=== PATIENT | female | born 1965 | race Caucasian/White ===

== ENCOUNTER → 2017-10-10 07:42 | Outpatient (CLI) | payer OTHER, MEDICAID, SELFPAY ==
[2017-10-10 08:31] LABS: Cholesterol 248 mg/dL (140-199); HDL Cholesterol 62 mg/dL (40-60); LDL Cholesterol Calculated 160 mg/dL (<100); Triglycerides 131 mg/dL (35-150)
== END ==
PROVIDERS: PCP Internal Medicine; Visit Provider Internal Medicine
DX: E78.00 Pure hypercholesterolemia, unspecified (principal)
CPT/HCPCS: 36415; 80061

== ENCOUNTER 2017-11-30 16:45 | Outpatient (RCR) | payer OTHER, MEDICAID, SELFPAY ==
--- NOTE | 2017-10-13 14:07 | PT.OIE ---
Current Diagnoses Pain in right shoulder (10/12/17) Pain in left shoulder (10/12/17) Muscle weakness (generalized) (10/12/17) Impingement syndrome of right shoulder (10/12/17) Abnormal posture (10/12/17) Past Surgical History Status post appendectomy Status post dilation and curettage Provider Visit Care Team Role Provider Type Charles Ness MD Family Provider Physician Specialty: Family Practice Address: [address] [place] [address], [id number] Email: [email or web address] Lowell Villegas MD Attending Provider Physician Primary Care Provider Specialty: Internal Medicine Address: [address] [place] [address], [id number] Email: Physical Therapy Initial Evaluation PT-OP-A Visit Information Start: 10/12/17 17:49 Freq: Status: Active Protocol: Document 10/12/17 11:15 [facility] (Rec: 10/12/17 17:55 [facility] [email or web address]) Out-Patient Physical Therapy Visit Information Visit Information Visit Type Initial Evaluation Visit Start Time 10:30 Visit Stop Time 11:15 Visit Number 1 Number of CASUAL SHOE INSPECTOR Visits 0 Evaluation Information Evaluation Date 10/12/17 PT-OP-B Current Condition Start: 10/12/17 17:49 Freq: Status: Active Protocol: Document 10/12/17 11:15 RCC (Rec: 10/13/17 14:07 [facility] [email or web address]) Current Condition History of Current Condition Onset Date 2 months ago Current Complaints Bilateral shoulder pain History of Current Condition Pt is a 52 y/o female presenting to physical therapy with a c/o bilateral shoulder pain, onset ~2 months ago of unknown origin. Pt notes that 2-3 yrs ago she had similar pain in the L shoulder only while she was backpacking on vacation. She had formal physical therapy which helped then. Aggravating factors: lifting, carrying heavy backpack. Easing factors: rest . Pt is hoping to be able to carry a large backpack (up to 30 lbs) to again backpack this summer, possibly overseas. She is R hand dominant. She admits to bilateral UE tingling occasionally. She also has a h/o headaches with aura. No imaging has been performed. Treatment Goals Patient/Caregiver Goals Be able to carry a 30 lb. backpack without pain. Prior Functional Status Baseline Function- ADL's Independent Baseline Function- Mobility Independent Baseline Function- Recreation/Hobbies Carry 30 lb backpack without pain. Current Functional Impairments (Reported) Functional Limitations- Recreation/ Unable to carry a 30 lb. Hobbies backpack without increased pain. PT-OP-C Subjective Start: 10/12/17 17:49 Freq: Status: Active Protocol: Document 10/12/17 11:15 RCC (Rec: 10/13/17 14:07 [facility] [email or web address]) OP-PT Subjective Patient Comments Patient Comments Pt reports that pain has been getting a little better over the past week. Patient Questionnaires Quick Dash- Upper Extremity Quick Dash UE Score 13.63 Quick Dash UE Impairment 1 to 19% Impaired (Score 1-19) OP-PT Pain Assessment Location Bilateral Shoulder Intensity 2 Scale Used Numeric (1 - 10) Description Aching Dull Frequency Frequent Pain Aggravating Factors Lifting Pain Alleviating Factors Rest PT-OP-F Manual Assessment Start: 10/12/17 17:49 Freq: Status: Active Protocol: Document 10/12/17 11:15 RCC (Rec: 10/13/17 14:07 [facility] [email or web address]) Manual Assessments Soft Tissue Assessment Soft Tissue Mobility Assessment TTP: R rotator cuff attachment , bilateral rhomboids, upper trapezius, levator scapula, infraspinatus. PT-OP-H Neuro Start: 10/12/17 17:49 Freq: Status: Active Protocol: Document 10/12/17 11:15 RCC (Rec: 10/13/17 14:07 [facility] [email or web address]) Deep Tendon Reflex & Clonus Assessment Deep Tendon Reflex Bilateral Brachioradialis Deep Tendon Reflex 2+ Normal Bilateral Tricep Deep Tendon Reflex 2+ Normal Bilateral Bicep Deep Tendon Reflex 2+ Normal PT-OP-J Posture/Palpation/Skin Start: 10/12/17 17:49 Freq: Status: Active Protocol: Document 10/12/17 11:15 RCC (Rec: 10/13/17 14:07 [facility] [email or web address]) Posture Evaluation Comments Posture Comments Moderate rounded shoulders, mild kyphosis of thoracic spine. PT-OP-K Range of Motion Start: 10/12/17 17:49 Freq: Status: Active Protocol: Document 10/12/17 11:15 RCC (Rec: 10/13/17 14:07 [facility] [email or web address]) Cervical Spine Range of Motion Cervical Spine Active Degrees Testing Position Sitting Flexion 60 Extension 70 Rotation Left 80 Rotation Right 80 Lateral Flexion Left 50 Lateral Flexion Right 45 Comments no pain Shoulder Goniometric Range of Motion Shoulder Measured in Degrees Right Passive Shoulder ROM WFL Yes Testing Position Supine Flexion 170 Abduction 170 Left Active Shoulder ROM WFL Yes Right Active Shoulder ROM WFL No Testing Position Sitting Flexion 160 Abduction 160 External Rotation at 90 degrees 90 Abduction Internal Rotation 80 PT-OP-L Special Tests Start: 10/12/17 17:49 Freq: Status: Active Protocol: Document 10/12/17 11:15 RCC (Rec: 10/13/17 14:07 [facility] [email or web address]) Special Tests Cervical Spine Special Tests Spurling's Test Test Results negative Shoulder Special Tests Elevation Impingement Test Results Positive R, negative L Collins Antony Impingement Test Results Positive R, negative L Empty Can Test Results Positive R, negative L Load and Shift Test Results negative bilaterally Lift-Off Rotator Cuff Test Results negative bilaterally Anterior Draw Test Results negative bilaterally PT-OP-M Strength Start: 10/12/17 17:49 Freq: Status: Active Protocol: Document 10/12/17 11:15 RCC (Rec: 10/13/17 14:07 [facility] [email or web address]) Shoulder Strength Shoulder Manual Muscle Testing Right Flexion 5 Normal Abduction (C5) 5 Normal External Rotation 4+ Good+ Internal Rotation 5 Normal Left Flexion 5 Normal Abduction (C5) 5 Normal External Rotation 5 Normal Internal Rotation 4+ Good+ PT-OP-Q Treatments Start: 10/12/17 17:49 Freq: Status: Active Protocol: Document 10/12/17 11:15 RCC (Rec: 10/13/17 14:07 [facility] [email or web address]) Therapeutic Exercises Sitting Exercises 1 Sitting Exercise Name upper trapezius stretch Side bilateral Reps/Minutes 2 each Comments 30 sec hold Standing Exercises 2 Standing Exercise Name Bilateral ER Side bilateral Resistance L1 band Reps/Minutes 1 x 10 Comments demonstration and tactile cuing 1 Standing Exercise Name Scapular retraction Side bilateral Resistance L1 band Reps/Minutes 1 x 10 Comments demonstration and tactile cuing PT-OP-T Assessment and Plan Start: 10/12/17 17:49 Freq: Status: Active Protocol: Document 10/12/17 11:15 RCC (Rec: 10/13/17 14:07 [facility] [email or web address]) Physical Therapy Assessment Rehab Potential Rehabilitation Potential Good Evaluation Complexity Number of Personal Factors/Comorbidities 1-2 Number of Body Systems Impaired 1-2 Clinical Presentation at Evaluation Stable Impairments Impairments Activity Tolerance Posture ROM Soft Tissue Mobility Strength Goals Five Impairment Inability to carry a 30 lb. backpack without increased pain. Short Term Goal (STG) Pt will carry a 15 lb backpack without increased pain. STG Duration 5 weeks Group Home Goal (LTG) Pt will carry a 30 lb backpack without increased pain. LTG Duration 10 weeks. Four Impairment Bilateral shoulder pain 2/10 Group Home Goal (LTG) 0/10 bilateral shoulder pain. LTG Duration 10 weeks Three Impairment Quick DASH score Short Term Goal (STG) Disability score of 7 or less STG Duration 5 weeks Independent Living Advisor Goal (LTG) Disability score of 0 LTG Duration 10 weeks Two Impairment Decreased ROM of the R shoulder Independent Living Advisor Goal (LTG) 170 degrees of AROM of flexion and abduction of the R shoulder without pain. One Impairment UE weakness Group Home Goal (LTG) 5/5 shoulder flexion, abduction, IR and ER. LTG Duration 10 weeks Assessment Summary Assessment Pt presents with signs and symptoms consistent with R shoulder impingement syndrome. L shoulder is elevated, pain likely from tension noted in the upper trapezius muscle. Pain in bilateral shoulders does not appear to be coming from the cervical spine, although pt's HAs may be related to the cervical spine in origin. Pt would greatly benefit from skilled physical therapy intervention to improve her ROM, strength, decrease pain, and be able to tolerate carrying a 30 lb backpack for her plans to travel/backpack later on this year. Physical Therapy Plan Frequency and Duration Frequency of Treatment 2x/Week Duration of Treatment 10 Plan of Care Start Date 10/12/17 Plan of Care End Date 12/21/17 Therapeutic Interventions Therapeutic Interventions Aquatic Therapy Home Exercise Program Joint Mobilizations Manual Therapy Neuromuscular Re-education Patient/Caregiver Education Self-Care/Home Management Soft Tissue Mobilization Taping Therapeutic Activities Therapeutic Exercises Modalities Cold Pack/Ice Massage Electric Stimulation Hot Packs Iontophoresis Ultrasound Other Therapeutic Interventions Iontophoresis- dexamethasone 4 mg/mL. Next Visit Focus/Plan Next Note Type Treatment Note Next Visit Plan bilateral shoulder row and extension bent over mat table, STR to upper trapezius. Please Sign and Return: I have reviewed this Plan of Care and certify that the skilled therapy services above are required to meet the patient?s needs. Physician Signature Date Printed Name and Credentials Clinical Instructor Signature Printed Name and Credentials
--- NOTE | 2017-10-19 13:47 | PT.OTN ---
Current Diagnoses Pain in right shoulder (10/19/17) Pain in left shoulder (10/19/17) Physical Therapy Treatment Note PT-OP-A Visit Information Start: 10/12/17 17:49 Freq: Status: Active Protocol: Document 10/19/17 12:45 RCC (Rec: 10/19/17 13:47 [facility] [email or web address]) Out-Patient Physical Therapy Visit Information Visit Information Visit Type Treatment Note Visit Start Time 12:05 Visit Stop Time 12:45 Total Visit Minutes 40 Visit Number 2 Number of SCHOOL CUSTODIAN Visits 0 Evaluation Information Evaluation Date 10/12/17 PT-OP-B Current Condition Start: 10/12/17 17:49 Freq: Status: Active Protocol: Document 10/12/17 11:15 RCC (Rec: 10/13/17 14:07 [facility] [email or web address]) Current Condition History of Current Condition Onset Date 2 months ago Current Complaints Bilateral shoulder pain History of Current Condition Pt is a 52 y/o female presenting to physical therapy with a c/o bilateral shoulder pain, onset ~2 months ago of unknown origin. Pt notes that 2-3 yrs ago she had similar pain in the L shoulder only while she was backpacking on vacation. She had formal physical therapy which helped then. Aggravating factors: lifting, carrying heavy backpack. Easing factors: rest . Pt is hoping to be able to carry a large backpack (up to 30 lbs) to again backpack this summer, possibly overseas. She is R hand dominant. She admits to bilateral UE tingling occasionally. She also has a h/o headaches with aura. No imaging has been performed. Treatment Goals Patient/Caregiver Goals Be able to carry a 30 lb. backpack without pain. Prior Functional Status Baseline Function- ADL's Independent Baseline Function- Mobility Independent Baseline Function- Recreation/Hobbies Carry 30 lb backpack without pain. Current Functional Impairments (Reported) Functional Limitations- Recreation/ Unable to carry a 30 lb. Hobbies backpack without increased pain. PT-OP-C Subjective Start: 10/12/17 17:49 Freq: Status: Active Protocol: Document 10/19/17 12:45 RCC (Rec: 10/19/17 13:47 [facility] [email or web address]) OP-PT Subjective Patient Comments Patient Comments Pt is doing her HEP, reports pain is a little less. Patient Reported Progress Improving PT-OP-F Manual Assessment Start: 10/12/17 17:49 Freq: Status: Active Protocol: Document 10/12/17 11:15 RCC (Rec: 10/13/17 14:07 [facility] [email or web address]) Manual Assessments Soft Tissue Assessment Soft Tissue Mobility Assessment TTP: R rotator cuff attachment , bilateral rhomboids, upper trapezius, levator scapula, infraspinatus. PT-OP-H Neuro Start: 10/12/17 17:49 Freq: Status: Active Protocol: Document 10/12/17 11:15 RCC (Rec: 10/13/17 14:07 [facility] [email or web address]) Deep Tendon Reflex & Clonus Assessment Deep Tendon Reflex Bilateral Brachioradialis Deep Tendon Reflex 2+ Normal Bilateral Tricep Deep Tendon Reflex 2+ Normal Bilateral Bicep Deep Tendon Reflex 2+ Normal PT-OP-J Posture/Palpation/Skin Start: 10/12/17 17:49 Freq: Status: Active Protocol: Document 10/19/17 12:45 RCC (Rec: 10/19/17 13:47 [facility] [email or web address]) Palpation Assessment Location One Palpation Location bilateral [place] Palpation Findings Tenderness Trigger Point Palpation Details L>R PT-OP-K Range of Motion Start: 10/12/17 17:49 Freq: Status: Active Protocol: Document 10/12/17 11:15 RCC (Rec: 10/13/17 14:07 [facility] [email or web address]) Cervical Spine Range of Motion Cervical Spine Active Degrees Testing Position Sitting Flexion 60 Extension 70 Rotation Left 80 Rotation Right 80 Lateral Flexion Left 50 Lateral Flexion Right 45 Comments no pain Shoulder Goniometric Range of Motion Shoulder Measured in Degrees Right Passive Shoulder ROM WFL Yes Testing Position Supine Flexion 170 Abduction 170 Left Active Shoulder ROM WFL Yes Right Active Shoulder ROM WFL No Testing Position Sitting Flexion 160 Abduction 160 External Rotation at 90 degrees 90 Abduction Internal Rotation 80 PT-OP-L Special Tests Start: 10/12/17 17:49 Freq: Status: Active Protocol: Document 10/12/17 11:15 RCC (Rec: 10/13/17 14:07 [facility] [email or web address]) Special Tests Cervical Spine Special Tests Spurling's Test Test Results negative Shoulder Special Tests Elevation Impingement Test Results Positive R, negative L Collins Antony Impingement Test Results Positive R, negative L Empty Can Test Results Positive R, negative L Load and Shift Test Results negative bilaterally Lift-Off Rotator Cuff Test Results negative bilaterally Anterior Draw Test Results negative bilaterally PT-OP-M Strength Start: 10/12/17 17:49 Freq: Status: Active Protocol: Document 10/12/17 11:15 RCC (Rec: 10/13/17 14:07 [facility] [email or web address]) Shoulder Strength Shoulder Manual Muscle Testing Right Flexion 5 Normal Abduction (C5) 5 Normal External Rotation 4+ Good+ Internal Rotation 5 Normal Left Flexion 5 Normal Abduction (C5) 5 Normal External Rotation 5 Normal Internal Rotation 4+ Good+ PT-OP-Q Treatments Start: 10/12/17 17:49 Freq: Status: Active Protocol: Document 10/19/17 12:45 RCC (Rec: 10/19/17 13:47 [facility] [email or web address]) Therapeutic Exercises Supine Exercises 1 Supine Exercise Name supine punch Side bilateral Resistance 3 lbs. Reps/Minutes 1x15 Prone Exercises 1 Prone Exercise Name Prone- I, T, Y Side bilateral Equipment Used 65 cm ball Reps/Minutes 1x12 Standing Exercises 5 Standing Exercise Name shoulder abduction and flexion Side bilateral Resistance 2 lbs Reps/Minutes 1x15 4 Standing Exercise Name shoulder abduction and flexion Side bilateral Resistance L2 Reps/Minutes 1x15 3 Standing Exercise Name Shoulder extension Side bilateral Resistance L2 Reps/Minutes 1x15 Manual Therapy Treatment Soft Tissue Mobilization 1 Body Location bilateral upper trapezius Mobilization Type Sustained Pressure Intensity/Depth Moderate Comments 12 min. PT-OP-R Modalities Start: 10/19/17 13:38 Freq: Status: Active Protocol: Document 10/19/17 12:45 RCC (Rec: 10/19/17 13:47 [facility] [email or web address]) Ultrasound Therapy Treatment Bilateral Upper Trapezius Treatment Duration (minutes) 8 Patient Position Sitting Applicator Size (cm2) 5 Frequency Setting (mHz) 1 Intensity Setting (w/cm2) 1.2 PT-OP-T Assessment and Plan Start: 10/12/17 17:49 Freq: Status: Active Protocol: Document 10/19/17 12:45 RCC (Rec: 10/19/17 13:47 [facility] [email or web address]) Physical Therapy Assessment Assessment Summary Assessment Pt tolerated UE strengthening without c/o pain, but requires tactile cuing for upper trapezius inhibition. More tension noted in L upper trapezius compared to the R. Physical Therapy Plan Frequency and Duration Frequency of Treatment 2x/Week Duration of Treatment 10 Plan of Care Start Date 10/12/17 Plan of Care End Date 12/21/17 Next Visit Focus/Plan Next Note Type Treatment Note Next Visit Plan UBE, advance BUE strengthening . Please Sign and Return: I have reviewed this Plan of Care and certify that the skilled therapy services above are required to meet the patient?s needs. Physician Signature Date Printed Name and Credentials Clinical Instructor Signature Printed Name and Credentials
--- NOTE | 2017-11-03 11:00 | PT.OTN ---
Current Diagnoses Pain in right shoulder (11/03/17) Pain in left shoulder (11/03/17) Physical Therapy Treatment Note PT-OP-A Visit Information Start: 10/12/17 17:49 Freq: Status: Active Protocol: Document 11/03/17 10:30 RCC (Rec: 11/03/17 11:00 [facility] [email or web address]) Out-Patient Physical Therapy Visit Information Visit Information Visit Type Treatment Note Visit Start Time 09:45 Visit Stop Time 10:30 Total Visit Minutes 45 Visit Number 3 Number of ASSEMBLER FAUCETS Visits 0 Evaluation Information Evaluation Date 10/12/17 PT-OP-B Current Condition Start: 10/12/17 17:49 Freq: Status: Active Protocol: Document 10/12/17 11:15 RCC (Rec: 10/13/17 14:07 [facility] [email or web address]) Current Condition History of Current Condition Onset Date 2 months ago Current Complaints Bilateral shoulder pain History of Current Condition Pt is a 52 y/o female presenting to physical therapy with a c/o bilateral shoulder pain, onset ~2 months ago of unknown origin. Pt notes that 2-3 yrs ago she had similar pain in the L shoulder only while she was backpacking on vacation. She had formal physical therapy which helped then. Aggravating factors: lifting, carrying heavy backpack. Easing factors: rest . Pt is hoping to be able to carry a large backpack (up to 30 lbs) to again backpack this summer, possibly overseas. She is R hand dominant. She admits to bilateral UE tingling occasionally. She also has a h/o headaches with aura. No imaging has been performed. Treatment Goals Patient/Caregiver Goals Be able to carry a 30 lb. backpack without pain. Prior Functional Status Baseline Function- ADL's Independent Baseline Function- Mobility Independent Baseline Function- Recreation/Hobbies Carry 30 lb backpack without pain. Current Functional Impairments (Reported) Functional Limitations- Recreation/ Unable to carry a 30 lb. Hobbies backpack without increased pain. PT-OP-C Subjective Start: 10/12/17 17:49 Freq: Status: Active Protocol: Document 11/03/17 10:30 [facility] (Rec: 11/03/17 11:00 [facility] [email or web address]) OP-PT Subjective Patient Comments Patient Comments Pt states that she has had what she feels like is nerve pain into the bilateral shoulders and forearms, R>L. She did lift a water cooler a few days after the previous session. PT-OP-F Manual Assessment Start: 10/12/17 17:49 Freq: Status: Active Protocol: Document 11/03/17 10:30 RCC (Rec: 11/03/17 11:00 [facility] [email or web address]) Manual Assessments Soft Tissue Assessment Soft Tissue Mobility Assessment TTP: bilateral median nerve PT-OP-H Neuro Start: 10/12/17 17:49 Freq: Status: Active Protocol: Document 10/12/17 11:15 RCC (Rec: 10/13/17 14:07 [facility] [email or web address]) Deep Tendon Reflex & Clonus Assessment Deep Tendon Reflex Bilateral Brachioradialis Deep Tendon Reflex 2+ Normal Bilateral Tricep Deep Tendon Reflex 2+ Normal Bilateral Bicep Deep Tendon Reflex 2+ Normal PT-OP-J Posture/Palpation/Skin Start: 10/12/17 17:49 Freq: Status: Active Protocol: Document 10/19/17 12:45 RCC (Rec: 10/19/17 13:47 [facility] [email or web address]) Palpation Assessment Location One Palpation Location bilateral [place] Palpation Findings Tenderness Trigger Point Palpation Details L>R PT-OP-K Range of Motion Start: 10/12/17 17:49 Freq: Status: Active Protocol: Document 10/12/17 11:15 RCC (Rec: 10/13/17 14:07 [facility] [email or web address]) Cervical Spine Range of Motion Cervical Spine Active Degrees Testing Position Sitting Flexion 60 Extension 70 Rotation Left 80 Rotation Right 80 Lateral Flexion Left 50 Lateral Flexion Right 45 Comments no pain Shoulder Goniometric Range of Motion Shoulder Measured in Degrees Right Passive Shoulder ROM WFL Yes Testing Position Supine Flexion 170 Abduction 170 Left Active Shoulder ROM WFL Yes Right Active Shoulder ROM WFL No Testing Position Sitting Flexion 160 Abduction 160 External Rotation at 90 degrees 90 Abduction Internal Rotation 80 PT-OP-L Special Tests Start: 10/12/17 17:49 Freq: Status: Active Protocol: Document 10/12/17 11:15 RCC (Rec: 10/13/17 14:07 [facility] [email or web address]) Special Tests Cervical Spine Special Tests Spurling's Test Test Results negative Shoulder Special Tests Elevation Impingement Test Results Positive R, negative L Collins Antony Impingement Test Results Positive R, negative L Empty Can Test Results Positive R, negative L Load and Shift Test Results negative bilaterally Lift-Off Rotator Cuff Test Results negative bilaterally Anterior Draw Test Results negative bilaterally PT-OP-M Strength Start: 10/12/17 17:49 Freq: Status: Active Protocol: Document 10/12/17 11:15 RCC (Rec: 10/13/17 14:07 [facility] [email or web address]) Shoulder Strength Shoulder Manual Muscle Testing Right Flexion 5 Normal Abduction (C5) 5 Normal External Rotation 4+ Good+ Internal Rotation 5 Normal Left Flexion 5 Normal Abduction (C5) 5 Normal External Rotation 5 Normal Internal Rotation 4+ Good+ PT-OP-Q Treatments Start: 10/12/17 17:49 Freq: Status: Active Protocol: Document 11/03/17 10:30 RCC (Rec: 11/03/17 11:00 [facility] [email or web address]) Manual Therapy Treatment Soft Tissue Mobilization 4 Body Location R supra and infraspinatus Mobilization Type Sustained Pressure Intensity/Depth Moderate 3 Body Location bilateral suboccipitals Mobilization Type Myofascial Release Intensity/Depth Moderate Body Position Supine 2 Body Location bilateral levator Mobilization Type Sustained Pressure Intensity/Depth Moderate 1 Body Location bilateral upper trapezius Mobilization Type Sustained Pressure Intensity/Depth Moderate Joint Mobilizations 1 Joint GH traction Direction inferior Grade II Body Position Supine Nerve Glides 1 Nerve Median Details bilateral Body Position Supine Reps/Duration 2 x 10 each Comments head neutral Self-Care/Home Management Treatment Education Patient Education Home Exercise Program Posture PT-OP-T Assessment and Plan Start: 10/12/17 17:49 Freq: Status: Active Protocol: Document 11/03/17 10:30 [facility] (Rec: 11/03/17 11:00 [facility] [email or web address]) Physical Therapy Assessment Assessment Summary Assessment Pt with tension bilaterally in the median nerve, R>L. Pt possibly with increased cervical muscle tension, increasing tension of the median nerves. Physical Therapy Plan Frequency and Duration Frequency of Treatment 2x/Week Duration of Treatment 10 Plan of Care Start Date 10/12/17 Plan of Care End Date 12/21/17 Next Visit Focus/Plan Next Note Type Treatment Note Next Visit Plan assess tolerance to previous session, posture, strengthening.
--- NOTE | 2017-11-10 10:20 | PT.OTN ---
Current Diagnoses Pain in right shoulder (11/10/17) Pain in left shoulder (11/10/17) Physical Therapy Treatment Note PT-OP-A Visit Information Start: 10/12/17 17:49 Freq: Status: Active Protocol: Document 11/10/17 10:20 RCC (Rec: 11/10/17 10:30 RCC [email or web address]) Out-Patient Physical Therapy Visit Information Visit Information Visit Type Treatment Note Visit Start Time 09:45 Visit Stop Time 10:20 Total Visit Minutes 35 Visit Number 4 Number of PLATFORM INSPECTOR Visits 0 Evaluation Information Evaluation Date 10/12/17 PT-OP-B Current Condition Start: 10/12/17 17:49 Freq: Status: Active Protocol: Document 10/12/17 11:15 RCC (Rec: 10/13/17 14:07 RCC [email or web address]) Current Condition History of Current Condition Onset Date 2 months ago Current Complaints Bilateral shoulder pain History of Current Condition Pt is a 52 y/o female presenting to physical therapy with a c/o bilateral shoulder pain, onset ~2 months ago of unknown origin. Pt notes that 2-3 yrs ago she had similar pain in the L shoulder only while she was backpacking on vacation. She had formal physical therapy which helped then. Aggravating factors: lifting, carrying heavy backpack. Easing factors: rest . Pt is hoping to be able to carry a large backpack (up to 30 lbs) to again backpack this summer, possibly overseas. She is R hand dominant. She admits to bilateral UE tingling occasionally. She also has a h/o headaches with aura. No imaging has been performed. Treatment Goals Patient/Caregiver Goals Be able to carry a 30 lb. backpack without pain. Prior Functional Status Baseline Function- ADL's Independent Baseline Function- Mobility Independent Baseline Function- Recreation/Hobbies Carry 30 lb backpack without pain. Current Functional Impairments (Reported) Functional Limitations- Recreation/ Unable to carry a 30 lb. Hobbies backpack without increased pain. PT-OP-C Subjective Start: 10/12/17 17:49 Freq: Status: Active Protocol: Document 11/10/17 10:20 RCC (Rec: 11/10/17 10:30 RCC [email or web address]) OP-PT Subjective Patient Comments Patient Comments Pt notes that the nerve pain she was experiencing went away after her previous session. She still feels weak in the UEs. PT-OP-F Manual Assessment Start: 10/12/17 17:49 Freq: Status: Active Protocol: Document 11/10/17 10:20 RCC (Rec: 11/10/17 10:30 RCC [email or web address]) Manual Assessments Soft Tissue Assessment Soft Tissue Mobility Assessment TTP: R infraspinatus, B levator and UT PT-OP-H Neuro Start: 10/12/17 17:49 Freq: Status: Active Protocol: Document 10/12/17 11:15 RCC (Rec: 10/13/17 14:07 RCC [email or web address]) Deep Tendon Reflex & Clonus Assessment Deep Tendon Reflex Bilateral Brachioradialis Deep Tendon Reflex 2+ Normal Bilateral Tricep Deep Tendon Reflex 2+ Normal Bilateral Bicep Deep Tendon Reflex 2+ Normal PT-OP-J Posture/Palpation/Skin Start: 10/12/17 17:49 Freq: Status: Active Protocol: Document 10/19/17 12:45 RCC (Rec: 10/19/17 13:47 RCC [email or web address]) Palpation Assessment Location One Palpation Location bilateral UT Palpation Findings Tenderness Trigger Point Palpation Details L>R PT-OP-K Range of Motion Start: 10/12/17 17:49 Freq: Status: Active Protocol: Document 10/12/17 11:15 RCC (Rec: 10/13/17 14:07 RCC [email or web address]) Cervical Spine Range of Motion Cervical Spine Active Degrees Testing Position Sitting Flexion 60 Extension 70 Rotation Left 80 Rotation Right 80 Lateral Flexion Left 50 Lateral Flexion Right 45 Comments no pain Shoulder Goniometric Range of Motion Shoulder Measured in Degrees Right Passive Shoulder ROM WFL Yes Testing Position Supine Flexion 170 Abduction 170 Left Active Shoulder ROM WFL Yes Right Active Shoulder ROM WFL No Testing Position Sitting Flexion 160 Abduction 160 External Rotation at 90 degrees 90 Abduction Internal Rotation 80 PT-OP-L Special Tests Start: 10/12/17 17:49 Freq: Status: Active Protocol: Document 10/12/17 11:15 RCC (Rec: 10/13/17 14:07 RCC [email or web address]) Special Tests Cervical Spine Special Tests Spurling's Test Test Results negative Shoulder Special Tests Elevation Impingement Test Results Positive R, negative L Collins Antony Impingement Test Results Positive R, negative L Empty Can Test Results Positive R, negative L Load and Shift Test Results negative bilaterally Lift-Off Rotator Cuff Test Results negative bilaterally Anterior Draw Test Results negative bilaterally PT-OP-M Strength Start: 10/12/17 17:49 Freq: Status: Active Protocol: Document 10/12/17 11:15 RCC (Rec: 10/13/17 14:07 RCC [email or web address]) Shoulder Strength Shoulder Manual Muscle Testing Right Flexion 5 Normal Abduction (C5) 5 Normal External Rotation 4+ Good+ Internal Rotation 5 Normal Left Flexion 5 Normal Abduction (C5) 5 Normal External Rotation 5 Normal Internal Rotation 4+ Good+ PT-OP-Q Treatments Start: 10/12/17 17:49 Freq: Status: Active Protocol: Document 11/10/17 10:20 RCC (Rec: 11/10/17 10:30 RCC [email or web address]) Therapeutic Exercises Prone Exercises 2 Prone Exercise Name Push up- Plus Side bilateral Reps/Minutes 1x10 Comments on floor, tactile cuing 1 Prone Exercise Name Prone- I, T, Y Side bilateral Resistance 1 Equipment Used 65 cm ball Reps/Minutes 1x10 Standing Exercises 7 Standing Exercise Name tricep pushdowns Side bilateral Resistance L3 Reps/Minutes 1x15 6 Standing Exercise Name chest pull Side bilateral Resistance L2 Reps/Minutes 1x15 3 Standing Exercise Name Shoulder extension Side bilateral Resistance L2 Reps/Minutes 1x15 Manual Therapy Treatment Soft Tissue Mobilization 4 Body Location R infraspinatus Mobilization Type Sustained Pressure Intensity/Depth Moderate 2 Body Location bilateral levator Mobilization Type Sustained Pressure Intensity/Depth Moderate 1 Body Location bilateral upper trapezius Mobilization Type Sustained Pressure Intensity/Depth Moderate PT-OP-R Modalities Start: 10/19/17 13:38 Freq: Status: Active Protocol: Document 10/19/17 12:45 RCC (Rec: 10/19/17 13:47 RCC [email or web address]) Ultrasound Therapy Treatment Bilateral Upper Trapezius Treatment Duration (minutes) 8 Patient Position Sitting Applicator Size (cm2) 5 Frequency Setting (mHz) 1 Intensity Setting (w/cm2) 1.2 PT-OP-T Assessment and Plan Start: 10/12/17 17:49 Freq: Status: Active Protocol: Document 11/10/17 10:20 RCC (Rec: 11/10/17 10:30 RCC [email or web address]) Physical Therapy Assessment Assessment Summary Assessment Pt tolerated increased therapeutic exercises today without c/o pain. Pt moderately fatigued with UE activities this session. She requires occasional tatile cuing to prevent L>R UT activation. Physical Therapy Plan Frequency and Duration Frequency of Treatment 2x/Week Duration of Treatment 10 weeks Plan of Care Start Date 10/12/17 Plan of Care End Date 12/21/17 Next Visit Focus/Plan Next Note Type Treatment Note Next Visit Plan prog. shoulder strengthening, posture, core stabilization.
--- NOTE | 2017-11-30 17:26 | PT.OTN ---
Current Diagnoses Pain in right shoulder (11/30/17) Pain in left shoulder (11/30/17) Physical Therapy Treatment Note PT-OP-A Visit Information Start: 10/12/17 17:49 Freq: Status: Active Protocol: Document 11/30/17 17:26 RCC (Rec: 11/30/17 17:37 RCC [email or web address]) Out-Patient Physical Therapy Visit Information Visit Information Visit Type Treatment Note Visit Start Time 16:45 Visit Stop Time 17:23 Total Visit Minutes 38 Visit Number 5 Number of DEVOPS DEVELOPER Visits 0 Evaluation Information Evaluation Date 10/12/17 PT-OP-B Current Condition Start: 10/12/17 17:49 Freq: Status: Active Protocol: Document 10/12/17 11:15 RCC (Rec: 10/13/17 14:07 RCC [email or web address]) Current Condition History of Current Condition Onset Date 2 months ago Current Complaints Bilateral shoulder pain History of Current Condition Pt is a 52 y/o female presenting to physical therapy with a c/o bilateral shoulder pain, onset ~2 months ago of unknown origin. Pt notes that 2-3 yrs ago she had similar pain in the L shoulder only while she was backpacking on vacation. She had formal physical therapy which helped then. Aggravating factors: lifting, carrying heavy backpack. Easing factors: rest . Pt is hoping to be able to carry a large backpack (up to 30 lbs) to again backpack this summer, possibly overseas. She is R hand dominant. She admits to bilateral UE tingling occasionally. She also has a h/o headaches with aura. No imaging has been performed. Treatment Goals Patient/Caregiver Goals Be able to carry a 30 lb. backpack without pain. Prior Functional Status Baseline Function- ADL's Independent Baseline Function- Mobility Independent Baseline Function- Recreation/Hobbies Carry 30 lb backpack without pain. Current Functional Impairments (Reported) Functional Limitations- Recreation/ Unable to carry a 30 lb. Hobbies backpack without increased pain. PT-OP-C Subjective Start: 10/12/17 17:49 Freq: Status: Active Protocol: Document 11/30/17 17:26 RCC (Rec: 11/30/17 17:37 RCC [email or web address]) OP-PT Subjective Patient Comments Patient Comments Pt states she went on a trip for 2 days, had a 20 lb backpack on and no pain in shoulders or arms. PT-OP-F Manual Assessment Start: 10/12/17 17:49 Freq: Status: Active Protocol: Document 11/10/17 10:20 RCC (Rec: 11/10/17 10:30 RCC [email or web address]) Manual Assessments Soft Tissue Assessment Soft Tissue Mobility Assessment TTP: R infraspinatus, B levator and UT PT-OP-H Neuro Start: 10/12/17 17:49 Freq: Status: Active Protocol: Document 10/12/17 11:15 RCC (Rec: 10/13/17 14:07 RCC [email or web address]) Deep Tendon Reflex & Clonus Assessment Deep Tendon Reflex Bilateral Brachioradialis Deep Tendon Reflex 2+ Normal Bilateral Tricep Deep Tendon Reflex 2+ Normal Bilateral Bicep Deep Tendon Reflex 2+ Normal PT-OP-J Posture/Palpation/Skin Start: 10/12/17 17:49 Freq: Status: Active Protocol: Document 10/19/17 12:45 RCC (Rec: 10/19/17 13:47 RCC [email or web address]) Palpation Assessment Location One Palpation Location bilateral UT Palpation Findings Tenderness Trigger Point Palpation Details L>R PT-OP-K Range of Motion Start: 10/12/17 17:49 Freq: Status: Active Protocol: Document 10/12/17 11:15 RCC (Rec: 10/13/17 14:07 RCC [email or web address]) Cervical Spine Range of Motion Cervical Spine Active Degrees Testing Position Sitting Flexion 60 Extension 70 Rotation Left 80 Rotation Right 80 Lateral Flexion Left 50 Lateral Flexion Right 45 Comments no pain Shoulder Goniometric Range of Motion Shoulder Measured in Degrees Right Passive Shoulder ROM WFL Yes Testing Position Supine Flexion 170 Abduction 170 Left Active Shoulder ROM WFL Yes Right Active Shoulder ROM WFL No Testing Position Sitting Flexion 160 Abduction 160 External Rotation at 90 degrees 90 Abduction Internal Rotation 80 PT-OP-L Special Tests Start: 10/12/17 17:49 Freq: Status: Active Protocol: Document 10/12/17 11:15 RCC (Rec: 10/13/17 14:07 RCC [email or web address]) Special Tests Cervical Spine Special Tests Spurling's Test Test Results negative Shoulder Special Tests Elevation Impingement Test Results Positive R, negative L Collins Antony Impingement Test Results Positive R, negative L Empty Can Test Results Positive R, negative L Load and Shift Test Results negative bilaterally Lift-Off Rotator Cuff Test Results negative bilaterally Anterior Draw Test Results negative bilaterally PT-OP-M Strength Start: 10/12/17 17:49 Freq: Status: Active Protocol: Document 10/12/17 11:15 RCC (Rec: 10/13/17 14:07 RCC [email or web address]) Shoulder Strength Shoulder Manual Muscle Testing Right Flexion 5 Normal Abduction (C5) 5 Normal External Rotation 4+ Good+ Internal Rotation 5 Normal Left Flexion 5 Normal Abduction (C5) 5 Normal External Rotation 5 Normal Internal Rotation 4+ Good+ PT-OP-Q Treatments Start: 10/12/17 17:49 Freq: Status: Active Protocol: Document 11/30/17 17:26 RCC (Rec: 11/30/17 17:37 RCC [email or web address]) Gym Equipment Cable Column (Body Solid) Rows Details alternating, staggered stance Resistance 2 plates Reps/Time 2x10 Triceps Resistance 1 plate Reps/Time 1x20 Lat Pull Down Resistance 2 plates Reps/Time 1x20 Therapeutic Exercises Standing Exercises 9 Standing Exercise Name rows Side bilateral Resistance L2 Reps/Minutes 1x20 8 Standing Exercise Name shoulder adduction Side bilateral Resistance L2 Reps/Minutes 1x20 each 3 Standing Exercise Name Shoulder extension Side bilateral Resistance L2 Reps/Minutes 1x20 Manual Therapy Treatment Soft Tissue Mobilization 3 Body Location bilateral suboccipitals Mobilization Type Myofascial Release Intensity/Depth Moderate Body Position Supine 2 Body Location bilateral levator Mobilization Type Sustained Pressure Intensity/Depth Moderate 1 Body Location bilateral upper trapezius Mobilization Type Sustained Pressure Intensity/Depth Moderate Joint Mobilizations 2 Joint C4/5 Direction sidegliding Grade III Body Position Supine PT-OP-R Modalities Start: 10/19/17 13:38 Freq: Status: Active Protocol: Document 10/19/17 12:45 RCC (Rec: 10/19/17 13:47 RCC [email or web address]) Ultrasound Therapy Treatment Bilateral Upper Trapezius Treatment Duration (minutes) 8 Patient Position Sitting Applicator Size (cm2) 5 Frequency Setting (mHz) 1 Intensity Setting (w/cm2) 1.2 PT-OP-T Assessment and Plan Start: 10/12/17 17:49 Freq: Status: Active Protocol: Document 11/30/17 17:26 RCC (Rec: 11/30/17 17:37 RCC [email or web address]) Physical Therapy Assessment Assessment Summary Assessment Pt tolerated exercises without c/o pain, but does fatigue. Pt had increased joint stiffness on the R at C4/5, but improved to normal mobility after manual therapy. Physical Therapy Plan Frequency and Duration Frequency of Treatment 2x/Week Duration of Treatment 10 weeks Plan of Care Start Date 10/12/17 Plan of Care End Date 12/21/17 Next Visit Focus/Plan Next Note Type Treatment Note Next Visit Plan continue postural and upper body stabilization.
--- NOTE | 2018-01-26 10:09 | PT.OPDS ---
Current Diagnoses Pain in right shoulder (11/30/17) Pain in left shoulder (11/30/17) Provider Visit Care Team Role Provider Type Charles Ness MD Family Provider Physician Specialty: Family Practice Address: [address] [place] [address], [id number] Email: Lowell Villegas MD Attending Provider Physician Primary Care Provider Specialty: Internal Medicine Address: [address] [place] [address], [facility] Email: Visit Number Visit Number 5 Discharge Summary PT-OP-B Current Condition Start: 10/12/17 17:49 Freq: Status: Active Protocol: Document 10/12/17 11:15 RCC (Rec: 10/13/17 14:07 RCC [email or web address]) Current Condition History of Current Condition Onset Date 2 months ago Current Complaints Bilateral shoulder pain History of Current Condition Pt is a 52 y/o female presenting to physical therapy with a c/o bilateral shoulder pain, onset ~2 months ago of unknown origin. Pt notes that 2-3 yrs ago she had similar pain in the L shoulder only while she was backpacking on vacation. She had formal physical therapy which helped then. Aggravating factors: lifting, carrying heavy backpack. Easing factors: rest . Pt is hoping to be able to carry a large backpack (up to 30 lbs) to again backpack this summer, possibly overseas. She is R hand dominant. She admits to bilateral UE tingling occasionally. She also has a h/o headaches with aura. No imaging has been performed. Treatment Goals Patient/Caregiver Goals Be able to carry a 30 lb. backpack without pain. Prior Functional Status Baseline Function- ADL's Independent Baseline Function- Mobility Independent Baseline Function- Recreation/Hobbies Carry 30 lb backpack without pain. Current Functional Impairments (Reported) Functional Limitations- Recreation/ Unable to carry a 30 lb. Hobbies backpack without increased pain. PT-OP-C Subjective Start: 10/12/17 17:49 Freq: Status: Active Protocol: Document 01/26/18 10:05 RCC (Rec: 01/26/18 10:09 RCC [email or web address]) OP-PT Subjective Patient Comments Patient Comments Pt called into the clinic and cancelled her final appointment, but states that we did a good job. PT-OP-F Manual Assessment Start: 10/12/17 17:49 Freq: Status: Active Protocol: Document 11/10/17 10:20 RCC (Rec: 11/10/17 10:30 RCC [email or web address]) Manual Assessments Soft Tissue Assessment Soft Tissue Mobility Assessment TTP: R infraspinatus, B levator and UT PT-OP-H Neuro Start: 10/12/17 17:49 Freq: Status: Active Protocol: Document 10/12/17 11:15 RCC (Rec: 10/13/17 14:07 RCC [email or web address]) Deep Tendon Reflex & Clonus Assessment Deep Tendon Reflex Bilateral Brachioradialis Deep Tendon Reflex 2+ Normal Bilateral Tricep Deep Tendon Reflex 2+ Normal Bilateral Bicep Deep Tendon Reflex 2+ Normal PT-OP-J Posture/Palpation/Skin Start: 10/12/17 17:49 Freq: Status: Active Protocol: Document 10/19/17 12:45 RCC (Rec: 10/19/17 13:47 RCC [email or web address]) Palpation Assessment Location One Palpation Location bilateral UT Palpation Findings Tenderness Trigger Point Palpation Details L>R PT-OP-K Range of Motion Start: 10/12/17 17:49 Freq: Status: Active Protocol: Document 10/12/17 11:15 RCC (Rec: 10/13/17 14:07 RCC [email or web address]) Cervical Spine Range of Motion Cervical Spine Active Degrees Testing Position Sitting Flexion 60 Extension 70 Rotation Left 80 Rotation Right 80 Lateral Flexion Left 50 Lateral Flexion Right 45 Comments no pain Shoulder Goniometric Range of Motion Shoulder Measured in Degrees Right Passive Shoulder ROM WFL Yes Testing Position Supine Flexion 170 Abduction 170 Left Active Shoulder ROM WFL Yes Right Active Shoulder ROM WFL No Testing Position Sitting Flexion 160 Abduction 160 External Rotation at 90 degrees 90 Abduction Internal Rotation 80 PT-OP-L Special Tests Start: 10/12/17 17:49 Freq: Status: Active Protocol: Document 10/12/17 11:15 RCC (Rec: 10/13/17 14:07 RCC [email or web address]) Special Tests Cervical Spine Special Tests Spurling's Test Test Results negative Shoulder Special Tests Elevation Impingement Test Results Positive R, negative L Collins Antony Impingement Test Results Positive R, negative L Empty Can Test Results Positive R, negative L Load and Shift Test Results negative bilaterally Lift-Off Rotator Cuff Test Results negative bilaterally Anterior Draw Test Results negative bilaterally PT-OP-M Strength Start: 10/12/17 17:49 Freq: Status: Active Protocol: Document 10/12/17 11:15 RCC (Rec: 10/13/17 14:07 RCC [email or web address]) Shoulder Strength Shoulder Manual Muscle Testing Right Flexion 5 Normal Abduction (C5) 5 Normal External Rotation 4+ Good+ Internal Rotation 5 Normal Left Flexion 5 Normal Abduction (C5) 5 Normal External Rotation 5 Normal Internal Rotation 4+ Good+ PT-OP-T Assessment and Plan Start: 10/12/17 17:49 Freq: Status: Active Protocol: Document 01/26/18 10:05 RCC (Rec: 01/26/18 10:09 [facility] [id number]) Physical Therapy Assessment Assessment Summary Assessment Pt was able to carry a 20 lb pack for 2 days on a trip without pain. Unfortunately, she cancelled her final appointment, therefore no objective measures could be re -assessed. Pt appears to be tolerating backpacking well, and has an established HEP to continue as instructed to address her deficits. Physical Therapy Plan Discharge Physical Therapy Discharge Reasons Patient Request
== END 2018-02-16 12:08 ==
LOC: PHYS 16:45
PROVIDERS: Family Provider Family Medicine; PCP Internal Medicine; Visit Provider Internal Medicine
DX: M25.511 Pain in right shoulder (principal); M25.512 Pain in left shoulder
CPT/HCPCS: 97035; 97110; 97140; 97161

== ENCOUNTER 2017-12-12 00:10 | Emergency (ER) | payer OTHER, MEDICAID, SELFPAY ==
[2017-12-12 00:22] VITALS: BP 157/92; PULSE 57; RESP 16; TEMP 36.6; O2SAT 100; BMI 25.7
[2017-12-12] MEDS: SODIUM CHLORIDE 0.9% 1,000 ML 150 ML IV (00:29)
[2017-12-12] MEDS: KETOROLAC 60 MG/2 ML VIAL 30 MG IV (00:29)
[2017-12-12 00:33] LABS: Add Manual Diff / Slide Review NO; Basophils Percent Auto 0.6 % (0-2); Eosinophils Percent Auto 2.7 % (2-4); Hematocrit 31.4 % (36-46); Hemoglobin 10.2 g/dL (12.0-16.0); Lymphocytes Percent Auto 35.5 % (25-40); Mean Corpuscular HGB Conc 32.4 % (30-36); Mean Corpuscular Hemoglobin 24.5 PG (26-34); Mean Corpuscular Volume 75.5 fL (80-100); Monocytes Percent Auto 8.8 % (3-14); Neutrophils Absolute Auto 4400 /uL (3000-5900); Neutrophils Percent Auto 52.4 % (50-75); Platelet Count 337 X10^3/uL (150-400); Red Blood Cell Count 4.15 X10^6/uL (4.0-5.2); Red Cell Distribution Width 17.8 % (11.6-14.8); White Blood Cell Count 8.3 X10^3/uL (4.5-11.0)
--- NOTE | 2017-12-12 00:35 | ED_ITS ---
HPI - Abdominal Pain General Chief Complaint: Back Pain/Injury Stated Complaint: thinks she has kidney stone Time Seen by Provider: 12/12/17 00:18 Source: patient Mode of arrival: ambulatory Limitations: no limitations History of Present Illness HPI narrative: The patient awoke with left flank pain about 45 min ago. The pain radiates to the left lower quadrant of her abdomen. With this she has no nausea vomiting. She has had no fever or chills. She denies dysuria and has had no hematuria this evening. She had similar event last week, that was not as severe. She thinks she had hematuria at that time. She does have a history of kidney stones. She has had no obvious injuries. Related Data Home Medications Medication Instructions Recorded Confirmed No Known Home Medications 09/21/17 11/30/17 Allergies Allergy/AdvReac Type Severity Reaction Status Date / Time iodine [IODINE] Allergy Severe IV Verified 11/30/17 11:04 CONTRAST - NUMBNESS, ITCHY FACE AND THROAT Review of Systems Review of Systems All systems reviewed & are unremarkable except as noted in HPI and below Constitutional Denies chills, Denies fever(s), Denies lethargy and Denies weakness ENT Ears, Nose, Mouth, and Throat: Denies change in voice, Denies neck pain and Denies sore throat Cardiovascular Denies chest pain, Denies irregular heart rhythm, Denies lightheadedness, Denies palpitations, Denies dyspnea, Denies dyspnea on exertion and Denies orthopnea Respiratory Denies cough, Denies dyspnea, Denies dyspnea on exertion and Denies wheezing Gastrointestinal Gastrointestinal: Reports abdominal pain, Denies change in bowel habits, Denies diarrhea, Denies nausea and Denies vomiting Genitourinary Reports hematuria, Reports flank pain, Denies urinary incontinence and Denies urinary urgency Musculoskeletal Denies neck pain Integumentary/Breasts Denies rash and Denies wounds Neurologic Denies weakness Endocrine Denies palpitations Allergic/Immunologic Denies wheezing FORMERLY [facility] Medical History Kidney stones (Resolved) Surgical History History of nephrostomy (Resolved) Status post appendectomy (Resolved) Status post dilation and curettage (Resolved) Family History Father Hyperlipidemia Alcoholism Mother COPD (chronic obstructive pulmonary disease) Social History Smoking Status: Never smoker Exam Initial Vital Signs Initial Vital Signs: Vital Signs Temperature 97.8 F 12/12/17 00:22 Pulse Rate 57 L 12/12/17 00:22 Respiratory Rate 16 12/12/17 00:22 Blood Pressure 157/92 H 12/12/17 00:22 Pulse Oximetry 100 12/12/17 00:22 Const General: cooperative and well developed Nutritional Appearance: well nourished Orientation: alert, awake, oriented x3 and not confused Eyes Conjunctivae: conjunctivae normal Resp Effort & Inspection: normal respiratory effort, able to speak in complete sentences, no respiratory distress and no use of accessory muscles Auscultation: clear to auscultation bilaterally, no rales, no rhonchi and no wheezes Cardio Rate: regular rate Rhythm: regular rhythm Heart Sounds: no click, no gallops, no murmurs and no rubs Pulses: normal peripheral pulses GI Inspection: non-distended Palpation: soft, no hepatosplenomegaly, No guarding, No pulsatile mass and tender (Mildly tender in the left mid abdominal area.) Auscultation: normal bowel sounds General: No CVA tenderness Back/Spine/Pelvis Back: normal to inspection and No back tenderness Skin General: no rashes or lesions noted Neuro General: alert, oriented x3, gait normal and no focal motor deficits Speech: speech normal Extrem General: full ROM and no clubbing, cyanosis or edema Course Orders Ordered: ED Orders 12/12/17 00:20 Basic Metabolic Panel Stat Complete Blood Count AUTO DIFF Stat 12/12/17 00:37 Urinalysis and Microscopic Stat 12/12/17 01:26 CT kidney ureter bladder (KUB) Stat Discontinued Medications Sodium Chloride (Normal Saline 0.9%) 1,000 mls @ 150 mls/hr IV CONT CHAYA Last Infusion: 12/12/17 02:12 Dose: 0 mls/hr Infusion: 12/12/17 02:12 Dose: 0 mls/hr Admin: 12/12/17 00:29 Dose: 150 mls/hr Ketorolac Tromethamine (Toradol) 30 mg IV NOW ONE Stop: 12/12/17 00:23 Last Admin: 12/12/17 00:29 Dose: 30 mg Vital Signs - 8 hr 12/12/17 00:22 12/12/17 02:05 Temperature 97.8 F 98.6 F Pulse Rate 57 L 63 Respiratory Rate 16 18 Blood Pressure 157/92 H Blood Pressure [Right Arm] 113/66 Pulse Oximetry 100 96 MDM - Abdominal Pain Lab Data Result diagrams: 12/12/17 00:20 12/12/17 00:20 Lab Results 12/12/17 12/12/17 12/12/17 Range/Units 00:20 00:20 00:37 WBC 8.3 (4.5-11.0) X10^3/uL RBC 4.15 (4.0-5.2) X10^6/uL Hgb 10.2 L (12.0-16.0) g/dL Hct 31.4 L (36-46) % MCV 75.5 L (80-100) fL MCH 24.5 L (26-34) PG MCHC 32.4 (30-36) % RDW 17.8 H (11.6-14.8) % Plt Count 337 (150-400) X10^3/uL Neut % (Auto) 52.4 (50-75) % Lymph % (Auto) 35.5 (25-40) % [place] % (Auto) 8.8 (3-14) % Eos % (Auto) 2.7 (2-4) % Baso % (Auto) 0.6 (0-2) % Neut # (Auto) 4400 (7965-0737) /uL Sodium 140 (137-145) mmol/L Potassium 3.7 (3.4-5.1) mmol/L Chloride 104 (98-107) mmol/L Carbon Dioxide 26 (22-32) mmol/L BUN 16 (7-17) mg/dL Creatinine 0.70 (0.52-1.04) mg/dL Estimated GFR > 60.0 (>60) mL/min BUN/Creatinine Ratio 22.9 H (6-22) Glucose 107 H (70-100) mg/dL Calcium 8.8 (8.4-10.2) mg/dL Urine Color Yellow Urine Appearance Clear Urine pH 7.0 (4.5-8.0) Ur Specific [place] 1.015 (1.000-1.035) Urine Protein Negative (Negative) Urine Glucose (UA) Negative (Normal) g/dL Urine Ketones Negative (NEGATIVE) Urine Occult Blood 3+ H (Negative) Urine Nitrate Negative (Negative) Urine Bilirubin Negative (NEGATIVE) Urine Urobilinogen 0.2 (0.2) E.U./dL Ur Leukocyte Esterase Negative (NEGATIVE) Urine RBC 30-100/hpf H (0-5/HPF) Urine WBC None seen (0-5/HPF) Ur Squamous Epith Cells 1-5 /hpf Amorphous Sediment 1+ Urine Bacteria Occasional (0-1) (None) Ur Culture Indicated? Cult not indicated Micro UA Comment Not Reportable Imaging Data KUB CT:: Radiologist's impression: 5 mm stone down the bladder. Two small 2 mm stones in the left kidney. There is mild hydronephrosis on the left, the 5 mm stone in the bladder would be consistent with a recently passed stone. MDM Narrative Medical decision making narrative: The patient has been pain-free since receiving IV fluids and Toradol. Overall evaluation suggests a passed kidney stone. Discharge Plan Departure Patient Disposition: Home, Self-Care Clinical Impression: Kidney stone on left side Discharge Date/Time: 12/12/17 02:15 Interventions: ED Discharge Assessment Last Done: 12/12/17 02:14 Instructions: DI for Kidney Stones Activity Restrictions/Additional Instructions: Advil 3 tablets every 6 hr as needed for pain. Drink plenty of water, be sure to stay well hydrated. Return here for worsening pain, vomiting or fever. Prescriptions: No Action No Known Home Medications RF: 0
[2017-12-12 00:37] LABS: BUN Creatinine Ratio 22.9 (6-22); Blood Urea Nitrogen 16 mg/dL (7-17); Calcium 8.8 mg/dL (8.4-10.2); Carbon Dioxide 26 mmol/L (22-32); Chloride 104 mmol/L (98-107); Estimated Glomerular Filt Rate > 60.0 mL/min (>60); Glucose 107 mg/dL (70-100); HEMOLYSIS < 15 (0-50); Potassium 3.7 mmol/L (3.4-5.1); Sodium 140 mmol/L (137-145)
[2017-12-12 00:40] LABS: Appearance Urine UA CLEAR; Bilirubin Urine UA NEGATIVE (NEGATIVE); Color Urine UA YELLOW; Glucose Urine UA NEGATIVE (Normal); Ketones Urine UA NEGATIVE (NEGATIVE); Leukocyte Esterase Urine UA NEGATIVE (NEGATIVE); Nitrite Urine UA Negative (Negative); Occult Blood Urine UA 3+ (Negative); Protein Urine UA NEGATIVE (Negative); Specific Gravity Urine UA 1.015 (1.000-1.035); Urobilinogen Urine UA 0.2 E.U./dL (0.2)
[2017-12-12 00:47] LABS: Amorphous Sediment Urine 1+; Bacteria Urine Occasional (0-1); Culture Indicated Urine Cult Not Indicated; RBC Urine 30-100/HPF (0-5/HPF); Squamous Epithelial Cell Urine 1-5 /HPF; WBC Urine None Seen (0-5/HPF)
--- NOTE | 2017-12-12 01:26 | DI.CT.S_ITS ---
PROCEDURE: CT KIDNEY URETER BLADDER (KUB) INDICATIONS: Hematuria. Left flank pain. TECHNIQUE: Noncontrast 5 mm thick sections acquired from the diaphragms to the symphysis. 5 mm thick coronal and sagittal reformats were then performed. For radiation dose reduction, the following was used: automated exposure control, adjustment of mA and/or kV according to patient size. COMPARISON: [facility], CT, PE STUDY (CTA CHEST), 10/01/2016, 12:57. [facility], CT, THORAX WITHOUT CONTRAST, 08/04/2017, 13:45. [facility], CT, ABDOMEN/PELVIS WITH CONTRAST, 10/27/2007, 9:41. [facility], CT, KIDNEY/ URETER/BLADDER, 05/26/2009, 13:09. FINDINGS: Preliminary report by maintenance technician 3rd shift radiology Image quality: Excellent. Lung bases: Lung bases are clear. A small pulmonary nodule in the posterior right upper lobe on last exam is not included. The 5 mm nodule in the superior segment right lower lobe is again unchanged from 2017 study. Heart size is normal. Urinary system: Both kidneys are normal in size. No right kidney stones. Nonobstructing 2 mm left kidney stones again noted. No right hydronephrosis or perinephric fat stranding. There is mild left hydronephrosis. There is mild dilatation of the left ureter with no visible stones. Bladder wall thickness is normal; a 5 mm calcified bladder stone is present, probably recently passed from the left ureter. The stone shows attenuation of 243. Other solid organs: Liver is normal in size. Gallbladder appears clear. Pancreas is normal in contours. Spleen is normal in size. No adrenal nodules. Peritoneum and bowel: Unenhanced bowel loops demonstrate normal wall thickness and caliber. No evidence of appendicitis or diverticulitis. No free fluid or air. Nodes and vessels: No retroperitoneal or mesenteric adenopathy by size criteria. Aorta and inferior vena cava are normal in caliber. Abdominal wall: No ventral hernias. Pelvis: No free pelvic fluid. No inguinal hernias or adenopathy. Uterus is unremarkable, IUD no longer present. Bones: No suspicious bony lesions. No vertebral body compression fractures. IMPRESSION: 1. Mild left nephrolithiasis as before. Mild left hydroureteronephrosis. 2. A 5 mm calcification is present in the left dependent portion of the urinary bladder, probably recently passed kidney stone. 3. Stable 5 mm pulmonary nodule in the right lower lobe. Findings are concordant with the preliminary report. Dictated by: Hermann Rosales M.D. on 12/12/2017 at 7:56 Approved by: Hermann Rosales M.D. on 12/12/2017 at 8:08
[2017-12-12 02:05] VITALS: BP 113/66; PULSE 63; RESP 18; TEMP 37; O2SAT 96
== END 2017-12-12 02:15 | disposition home or self-care (01) ==
PROVIDERS: Emergency Provider Emergency Medicine; Family Provider Family Medicine; PCP Internal Medicine
DX: N20.0 Calculus of kidney (principal)
CPT/HCPCS: 36591; 74176; 80048; 81001; 85025; 96361; 96374; 99283; 99284; J1885

== ENCOUNTER → 2018-05-12 10:15 | Outpatient (CLI) | payer OTHER, MEDICAID, SELFPAY ==
[2018-05-12 10:57] LABS: Add Manual Diff / Slide Review NO; Eosinophils Percent Auto 2.9 % (2-4); Hematocrit 34.2 % (36-46); Hemoglobin 11.2 g/dL (12.0-16.0); Lymphocytes Percent Auto 30.9 % (25-40); Mean Corpuscular HGB Conc 32.7 % (30-36); Mean Corpuscular Volume 79.7 fL (80-100); Monocytes Percent Auto 7.1 % (3-14); Neutrophils Absolute Auto 3300 /uL (1500-7000); Neutrophils Percent Auto 58.1 % (50-75); Platelet Count 384 X10^3/uL (150-400); Red Blood Cell Count 4.29 X10^6/uL (4.0-5.2); Red Cell Distribution Width 15.8 % (11.6-14.8); White Blood Cell Count 5.6 X10^3/uL (4.5-11.0)
[2018-05-12 11:17] LABS: BUN Creatinine Ratio 21.3 (6-22); Blood Urea Nitrogen 17 mg/dL (7-17); Calcium 8.8 mg/dL (8.4-10.2); Carbon Dioxide 25 mmol/L (22-32); Chloride 105 mmol/L (98-107); Cholesterol 276 mg/dL (140-199); Estimated Glomerular Filt Rate > 60.0 mL/min (>60); Glucose 97 mg/dL (70-100); HDL Cholesterol 59 mg/dL (40-60); HEMOLYSIS < 15 (0-50); LDL Cholesterol Calculated 198 mg/dL (<100); Magnesium 2.2 mg/dL (1.6-2.3); Potassium 4.2 mmol/L (3.4-5.1); Sodium 141 mmol/L (137-145); Triglycerides 94 mg/dL (35-150)
[2018-05-12 11:18] LABS: C-Reactive Protein Quant < 0.5 mg/dL (<1.0)
[2018-05-12 11:39] LABS: HEMOLYSIS < 15 (0-50); Iron 27 ug/dL (37-170)
[2018-05-12 11:45] LABS: Ferritin 3.6 ng/mL (11.1-264)
[2018-05-12 11:51] LABS: Percent Iron Saturation 7 % (15-50); Total Iron Binding Capacity 407 ug/dL (265-497); Transferrin 343 mg/dL (206-381)
[2018-05-12 11:55] LABS: Vitamin D 25 Hydroxy (D3) 34.6 ng/mL (30.0-100.0)
[2018-05-12 12:10] LABS: TSH w/ Reflex to FT4 2.82 uIU/mL (0.47-4.68)
== END ==
PROVIDERS: PCP Student in an Organized Health Care Education/Training Program; Visit Provider Student in an Organized Health Care Education/Training Program
DX: D50.9 Iron deficiency anemia, unspecified (principal); E03.9 Hypothyroidism, unspecified; E78.5 Hyperlipidemia, unspecified; G43.909 Migraine, unspecified, not intractable, without status migrainosus; R07.89 Other chest pain; E55.9 Vitamin D deficiency, unspecified
CPT/HCPCS: 36415; 80048; 80061; 82306; 82728; 83540; 83550; 83735; 84443; 85025; 86140

== ENCOUNTER → 2019-09-04 10:00 | Outpatient (CLI) | payer OTHER, MEDICAID, SELFPAY ==
[2019-09-04 10:47] LABS: Add Manual Diff / Slide Review NO; Basophils Absolute Auto 0 /uL (0-100); Basophils Percent Auto 0.4 % (0-2); Eosinophils Absolute Auto 100 /uL (0-450); Eosinophils Percent Auto 1.8 % (2-4); Hematocrit 39.6 % (36-46); Hemoglobin 13.4 g/dL (12.0-16.0); Lymphocytes Absolute Auto 1800 /uL (1100-4500); Lymphocytes Percent Auto 24.6 % (25-40); Mean Corpuscular HGB Conc 33.8 % (30-36); Mean Corpuscular Hemoglobin 29.6 PG (26-34); Mean Corpuscular Volume 87.7 fL (80-100); Monocytes Absolute Auto 600 /uL (0-900); Monocytes Percent Auto 7.5 % (3-14); Neutrophils Absolute Auto 4900 /uL (1500-7000); Neutrophils Percent Auto 65.7 % (50-75); Platelet Count 376 X10^3/uL (150-400); Red Blood Cell Count 4.51 X10^6/uL (4.0-5.2); Red Cell Distribution Width 13.5 % (11.6-14.8); White Blood Cell Count 7.4 X10^3/uL (4.5-11.0)
[2019-09-04 10:50] LABS: Alanine Aminotransferase 17 IU/L (<35); Albumin 4.2 g/dL (3.5-5.0); Albumin Globulin Ratio 1.2 (1.0-2.8); Alkaline Phosphatase 54 U/L (38-126); Aspartate Aminotransferase 23 IU/L (14-36); BUN Creatinine Ratio 18.2 (6-22); Bilirubin Total 0.4 mg/dL (0.2-1.3); Blood Urea Nitrogen 12 mg/dL (7-17); Calcium 8.8 mg/dL (8.4-10.2); Carbon Dioxide 27 mmol/L (22-32); Chloride 106 mmol/L (98-107); Cholesterol 291 mg/dL (140-199); Estimated Glomerular Filt Rate > 60.0 mL/min (>60); Globulin 3.4 g/dL (1.7-4.1); Glucose 88 mg/dL (70-100); HDL Cholesterol 49 mg/dL (40-60); HEMOLYSIS < 15 (0-50); LDL Cholesterol Calculated 212 mg/dL (<100); Potassium 3.9 mmol/L (3.4-5.1); Sodium 139 mmol/L (137-145); Total Protein 7.6 g/dL (6.3-8.2); Triglycerides 152 mg/dL (35-150)
[2019-09-04 11:09] LABS: Free T4, Direct Thyroxine 0.76 ng/dL (0.78-2.19)
[2019-09-04 11:23] LABS: Thyroid Stimulating Hormone 3.54 uIU/mL (0.47-4.68)
== END ==
PROVIDERS: PCP Nurse Practitioner; Referring Provider Nurse Practitioner; Visit Provider Nurse Practitioner
DX: D50.9 Iron deficiency anemia, unspecified (principal); E78.5 Hyperlipidemia, unspecified; R19.5 Other fecal abnormalities
CPT/HCPCS: 36415; 80053; 80061; 84439; 84443; 84481; 85025

== ENCOUNTER → 2019-10-17 16:12 | Outpatient (CLI) | payer OTHER, MEDICAID, SELFPAY ==
[2019-10-18 16:34] LABS: COVID19 Sendout NOT DETECTED (Not Detect)
[2020-04-02 07:08] LABS: Fecal Immunochemical Test Negative (Negative)
== END ==
PROVIDERS: PCP Nurse Practitioner; Visit Provider Registered Nurse
DX: Z01.812 Encounter for preprocedural laboratory examination (principal)
CPT/HCPCS: 82274; 87635

== ENCOUNTER → 2019-12-26 12:34 | Outpatient (CLI) | payer OTHER, MEDICAID, SELFPAY ==
--- NOTE | 2019-12-26 12:36 | DI.CT.S_ITS ---
PROCEDURE: CT KIDNEY URETER BLADDER (KUB) INDICATIONS: 36 hours left flank pain, worsening, hx lithotripsy TECHNIQUE: Noncontrast 5 mm thick sections acquired from the diaphragms to the symphysis. 5 mm thick coronal and sagittal reformats were then performed. For radiation dose reduction, the following was used: automated exposure control, adjustment of mA and/or kV according to patient size. COMPARISON: [facility], CT, CT KIDNEY URETER BLADDER (KUB), 12/12/2017, 1:30. [facility], CT, KIDNEY/ URETER/BLADDER, 05/26/2009, 13:09. FINDINGS: Image quality: Excellent. Lung bases: Lung bases are clear. Heart size is normal. Urinary system: Both kidneys are normal in size. Redemonstration of tiny punctate nephroliths in the left kidney measuring up to 2 mm in size. No no right-sided kidney stones. No hydronephrosis or perinephric fat stranding. Both ureters appear non-dilated throughout their expected courses. Bladder wall thickness is normal; no calcified bladder stones visualized. Multiple punctate stones are noted in the lower pelvis near the bladder, favored to represent phleboliths as they are relatively stable in appearance compared to previous imaging. Likely small left renal cyst. This is unchanged. Other solid organs: Liver is normal in size. Gallbladder is unremarkable. Pancreas is normal in contours. Spleen is normal in size. No adrenal nodules. Peritoneum and bowel: Unenhanced bowel loops demonstrate normal wall thickness and caliber. No free fluid or air. Nodes and vessels: No retroperitoneal or mesenteric adenopathy by size criteria. Aorta and inferior vena cava are normal in caliber. Abdominal wall: No ventral hernias. There is a fat-containing umbilical hernia without acute inflammation. Pelvis: No free pelvic fluid. No inguinal hernias or adenopathy. Bones: No suspicious bony lesions. No acute vertebral body compression fractures. IMPRESSION: 1. Small left punctate nephroliths measuring up to 2 mm without evidence for obstructive uropathy. 2. Otherwise, no acute abnormalities identified in the abdomen or pelvis. Dictated by: Sonny Hoffmann M.D. on 12/26/2019 at 13:41 Approved by: Sonny Hoffmann M.D. on 12/26/2019 at 13:50
== END ==
PROVIDERS: PCP Nurse Practitioner; Referring Provider Nurse Practitioner; Visit Provider Nurse Practitioner
DX: R10.9 Unspecified abdominal pain (principal); N20.0 Calculus of kidney; Z87.442 Personal history of urinary calculi
CPT/HCPCS: 74176

== ENCOUNTER 2019-12-31 07:45 | Emergency (ER) | payer OTHER, MEDICAID, SELFPAY ==
[2019-12-31 08:22] VITALS: BP 147/92; PULSE 61; RESP 18; TEMP 36.6; O2SAT 99; BMI 25.6
--- NOTE | 2019-12-31 08:34 | ED_ITS ---
HPI - Abdominal Pain General Chief Complaint: Abdominal Pain Stated Complaint: KIDNEY STONE Time Seen by Provider: 12/31/19 08:08 Source: patient Mode of arrival: Ambulatory Limitations: no limitations History of Present Illness HPI narrative: 54-year-old woman with a history nephrolithiasis, renal stents, nephrostomy tubes and lithotripsy presents with 6 days of left flank pain without fever or gross hematuria. She was seen by her primary care physician Dr. foreman and a CT KUB indicated small left punctate nephrolithiasis, 2 mm without evidence for obstruction on December 25. She has been increasing fluid intake and using ibuprofen. Yesterday she used single Vicodin and is finding the pain is simply becoming more and more difficult to control. Related Data Home Medications Medication Instructions Recorded Confirmed magnesium oxide,aspartate,citr PO 12/16/17 09/05/19 multivitamin 1 cap PO DAILY 12/16/17 09/05/19 iron PO .QD 11/07/18 09/05/19 tumeric PO .QD 11/07/18 09/05/19 Previous Rx's Medication Instructions Recorded cholecalciferol (vitamin D3) 100 4,000 unit PO DAILY #30 cap 05/11/18 mcg (4,000 unit) capsule tretinoin 0.05 % topical cream 1 applictn TOP BEDTIME #20 gram 11/22/19 tretinoin 0.1 % topical cream 1 applictn TOP BEDTIME #20 gram 11/22/19 ibuprofen 600 mg tablet 600 mg PO Q6H PRN #30 tab 12/26/19 hydrocodone 5 mg-acetaminophen 325 1 tab PO Q8H PRN #7 tab 12/31/19 mg tablet valacyclovir 1,000 mg PO Q8H #21 tab 12/31/19 Allergies Allergy/AdvReac Type Severity Reaction Status Date / Time iodine [IODINE] Allergy Severe IV Verified 09/05/19 14:10 CONTRAST - NUMBNESS, ITCHY FACE AND THROAT Review of Systems Review of Systems Narrative: Pertinent positive and negative findings as per HPI Remainder of review of systems is otherwise unremarkable for Constitutional: Fevers, chills, weakness ENT: No sore throat, neck pain, ear pain CV: Chest pain, palpitations, dyspnea on exertion Respiratory: Cough, wheeze, dyspnea GI: Nausea, vomiting, diarrhea, change in bowel habits, black or bloody stools MS: Muscle weakness, numbness, joint swelling or warmth Skin: Rashes, nonhealing lesions Neuro: Syncope, dizziness, tingling Patient History Medical History Atypical chest pain (Inactive) Chronic pain of both knees (08/17/17) Kervin-colored stools (Inactive) Concern about cancer without diagnosis (Inactive) Dyspnea on exertion (11/30/16) Encounter for screening for malignant neoplasm of skin (Inactive) Hypertriglyceridemia (Acute) Iron deficiency anemia (Inactive) Kidney stones (Resolved) Lesion of skin of breast (Inactive) Low serum triiodothyronine (T3) (Inactive) Low thyroxine (T4) level (Inactive) Lung nodule (Acute 11/30/16) Milia of eyelids of both eyes (Inactive) Non-rheumatic mitral regurgitation (11/30/16) 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 Able to give a complete and coherent history. Well-nourished well-developed HEENT: Moist mucous membranes, normal sclera with reactive pupils, Neck: supple Respiratory: Lungs are clear to auscultation, no wheezing no rales no rhonchi. Full and symmetrical air movement Cardiac: Regular rate and rhythm no murmurs no bruits Abdomen: Soft nontender good bowel tones, no flank pain with palpation Skin: Warm and dry, no rashes Neurologic: Grossly neurologically intact with no obvious asymmetries or abnormalities Extremities: No trauma, well perfused Psych: Cooperative, appropriate insight and affect Initial Vital Signs Initial Vital Signs: Vital Signs Temperature 98 F 12/31/19 08:22 Pulse Rate 61 12/31/19 08:22 Respiratory Rate 18 12/31/19 08:22 Blood Pressure 147/92 H 12/31/19 08:22 Pulse Oximetry 99 12/31/19 08:22 Course Orders Ordered: Discontinued Medications Hydromorphone HCl (Dilaudid) 0.5 mg IV NOW ONE Stop: 12/31/19 08:34 Last Admin: 12/31/19 09:31 Dose: Not Given Documented by: JAZMYN Sodium Chloride (Normal Saline 0.9%) 1,000 mls @ 1,000 mls/hr IV BOLUS ONE Stop: 12/31/19 09:32 Last Admin: 12/31/19 08:38 Dose: 1,000 mls/hr Documented by: JAZMYN Ketorolac Tromethamine (Toradol) 15 mg IV NOW ONE Stop: 12/31/19 08:34 Last Admin: 12/31/19 08:38 Dose: 15 mg Documented by: JAZMYN Magnesium Citrate (Magnesium Citrate) 300 ml PO NOW ONE Stop: 12/31/19 09:41 Ondansetron HCl (Zofran) 4 mg IV NOW ONE Stop: 12/31/19 08:34 Last Admin: 12/31/19 08:38 Dose: 4 mg Documented by: JAZMYN Vital Signs Vital signs: Vital Signs - 8 hr 12/31/19 08:22 Temperature 98 F Pulse Rate 61 Respiratory Rate 18 Blood Pressure 147/92 H Pulse Oximetry 99 MDM - Abdominal Pain Medical Records Attestation: I reviewed the patient's medical records. Lab Data Attestation: I reviewed the patient's lab results. Result diagrams: 12/31/19 08:18 12/31/19 08:18 Labs: Lab Results 12/31/19 12/31/19 Range/Units 08:18 08:18 WBC 5.7 (4.5-11.0) X10^3/uL RBC 4.48 (4.0-5.2) X10^6/uL Hgb 13.4 (12.0-16.0) g/dL Hct 38.9 (36-46) % MCV 86.8 (80-100) fL MCH 29.8 (26-34) PG MCHC 34.4 (30-36) % RDW 12.9 (11.6-14.8) % Plt Count 324 (150-400) X10^3/uL Neut % (Auto) 50.6 (50-75) % Lymph % (Auto) 39.5 (25-40) % Hawkins % (Auto) 6.5 (3-14) % Eos % (Auto) 2.6 (2-4) % Baso % (Auto) 0.8 (0-2) % Neut # (Auto) 2900 (1618-8274) /uL Lymph # (Auto) 2300 (7000-7436) /uL Hawkins # (Auto) 400 (0-900) /uL Eos # (Auto) 200 (0-450) /uL Baso # (Auto) 0 (0-100) /uL Sodium 139 (137-145) mmol/L Potassium 3.9 (3.4-5.1) mmol/L Chloride 104 (98-107) mmol/L Carbon Dioxide 28 (22-32) mmol/L BUN 7 (7-17) mg/dL Creatinine 0.75 (0.52-1.04) mg/dL Estimated GFR > 60.0 (>60) mL/min BUN/Creatinine Ratio 9.3 (6-22) Glucose 87 (70-100) mg/dL Calcium 9.1 (8.4-10.2) mg/dL Magnesium 2.1 (1.6-2.3) mg/dL Total Bilirubin 0.4 (0.2-1.3) mg/dL AST 25 (14-36) IU/L ALT 18 (<35) IU/L Alkaline Phosphatase 53 (38-126) U/L Total Protein 8.1 (6.3-8.2) g/dL Albumin 4.4 (3.5-5.0) g/dL Globulin 3.7 (1.7-4.1) g/dL Albumin/Globulin Ratio 1.2 (1.0-2.8) Lipase 22 L (23-300) U/L Point of care testing: Urine Dip Bedside Urine Glucose Negative Bedside Urine Bilirubin - Negative Bedside Urine Ketone - Negative Urine Specific Clark 1.015 Bedside Urine Occult Blood - Negative Bedside Urine pH 6.0 Bedside Urine Protein - Negative Bedside Urine Urobilinogen - Negative Bedside Urine Nitrite - Negative Bedside Urine Leukocytes - Negative Esterase Imaging Data CT KUB December 25: Radiologist's Impression: FINDINGS: Image quality: Excellent. Lung bases: Lung bases are clear. Heart size is normal. Urinary system: Both kidneys are normal in size. Redemonstration of tiny punc maldonado nephroliths in the left kidney measuring up to 2 mm in size. No no right-sided kidney stones. No hydronephrosis or perinephric fat stranding. Both ureters appear non-dilated throughout their expected courses. Bladder wall thickness is normal; no calcified bladder stones visualized. Multiple punctate stones are noted in the lower pelvis near the bladder, favored to represent phleboliths as they are relatively stable in appearance compared to previous imaging. Likely small left renal cyst. This is unchanged. Other solid organs: Liver is normal in size. Gallbladder is unremarkable. Pancreas is normal in contours. Spleen is normal in size. No adrenal nodules. Peritoneum and bowel: Unenhanced bowel loops demonstrate normal wall thickness and caliber. No free fluid or air. Nodes and vessels: No retroperitoneal or mesenteric adenopathy by size criteria. Aorta and inferior vena cava are normal in caliber. Abdominal wall: No ventral hernias. There is a fat-containing umbilical hernia without acute inflammation. Pelvis: No free pelvic fluid. No inguinal hernias or adenopathy. Bones: No suspicious bony lesions. No acute vertebral body compression f ractures. IMPRESSION: 1. Small left punctate nephroliths measuring up to 2 mm without evidence for obstructive uropathy. 2. Otherwise, no acute abnormalities identified in the abdomen or pelvis. Dictated by: Sonny Hoffmann M.D. on 12/26/2019 at 13:41 MDM Narrative Medical decision making narrative: 54-year-old woman presents with a week of increasing left flank pain. CT scan done on the actually shows no for left in the left kidney measuring up to 2 mm without hydronephrosis or perinephric fat stranding. No evidence of obstructive uropathy. No other significantly abnormal findings on that CT scan. She is intolerant to iodine so contrast scanning can not be done. Labs are reviewed and urine dip has absolutely no blood and labs are remarkably normal including a white blood cell count. And actually looking at the CT scan there is a significant stool load through the entire colon. She notes that she actually has not had a bowel movement for a couple of days since the CT scan. In light of the absence of fevers, white count, reproducible abdominal pain on exam and no point tenderness along the lumbar spine, I am wondering if simply severe obstipation may be the cause of the colicky worsening pain. Will suggest magnesium citrate and discharge home. If this does not influence her pain afte r bowels have been cleaned out, will ask her to return. Next step would be to repeat a CT scan given the persistent pain. I do believe she is safe for home discharge at this time. 1014am after patient is discharged she points out a small lesion just left of midline in the left upper abdomen erythematous base with vascicular lesion. She also notes that she has had decreased sensation over the skin left upper abdomen. She notes that she has had shingles once before and had only is single lesion at that time. Certainly a zoster outbreak could explain the type of pain that she is having. Will ask her to still proceed with the magnesium citrate and if this does not alleviate her pain to begin treatment for zoster 630pm phone call follow-up. A moderate amount of stool after the magnesium citrate and pain is somewhat better. She isn't describing any additional zoster type lesions developing. She has plans to follow-up with her primary care physician. Discharge Plan Departure Patient Disposition: Home Clinical Impression: Acute left flank pain Constipation Qualifiers: Constipation type: unspecified constipation type Qualified Code(s): K59.00 - Constipation, unspecified Abdominal pain Qualifiers: Abdominal location: left upper quadrant Qualified Code(s): R10.12 - Left upper quadrant pain Herpes zoster Qualifiers: Herpes zoster complications: without complications Qualified Code(s): B02.9 - Zoster without complications Discharge Date/Time: 12/31/19 10:31 Instructions: DI for Shingles, DI for Constipation Activity Restrictions/Additional Instructions: Thank you for coming in today I hope I am able to help with the flank/abdominal pain that your currently having. Your blood work today was very reassuring. There is no evidence of acute infections such as diverticulitis. CT scan from December 25 does not suggest ovarian cysts or complication. The same CT scan does show a significant amount of stool throughout your entire colon. It also shows a 2 mm stone in your kidney but no evidence of and obstructing kidney stone that could explain the pain that your currently experiencing. Similarly, there does not appear to be any kidney infection. Your urine shows no sign of infection and no blood in your urine as we typically would see with kidney stones I am going to send home with a bottle of magnesium citrate and see if getting all of the stool out of your colon alleviates your pain. You pointed out the small skin lesion on the left side of your upper abdomen along with the slight numbness of left upper abdominal skin. This could well be a shingles/zoster outbreak and that could be the underlying cause of the left- sided flank pain. If you have no relief of pain after the magnesium citrate please start the valacyclovir a 1000 mg 3 times a day for 7 days. [facility] for you to pick If after having a significant bowel movement your pain is not improving or getting worse or he develops fevers or new or worsening symptoms, please return to the emergency room and I am happy to re-evaluate. Prescriptions: New valacyclovir 1 gram tablet 1,000 mg PO Q8H Qty: 21 RF: 0 No Action tretinoin 0.05 % cream 1 applictn TOP BEDTIME Qty: 20 RF: 3 tretinoin 0.1 % cream 1 applictn TOP BEDTIME Qty: 20 RF: 3 ibuprofen 600 mg tablet 600 mg PO Q6H PRN (Reason: pain) Qty: 30 RF: 1 hydrocodone-acetaminophen 5-325 mg tablet 1 tab PO Q8H PRN (Reason: pain) Qty: 7 RF: 0 cholecalciferol (vitamin D3) 4,000 unit capsule 4,000 unit PO DAILY Qty: 30 RF: 0 iron PO .QD RF: 0 tumeric PO .QD RF: 0 multivitamin capsule 1 cap PO DAILY RF: 0 magnesium oxide,aspartate,citr PO RF: 0 Referrals: Jenna Foreman ARNP [Primary Care Provider] -
[2019-12-31] MEDS: KETOROLAC 60 MG/2 ML VIAL 15 MG IV (08:38)
[2019-12-31] MEDS: ONDANSETRON 4 MG/2 ML INJ IV (08:38)
[2019-12-31] MEDS: SODIUM CHLORIDE 0.9% 1,000 ML 1000 ML IV (08:38)
[2019-12-31 08:39] LABS: Add Manual Diff / Slide Review NO; Basophils Absolute Auto 0 /uL (0-100); Basophils Percent Auto 0.8 % (0-2); Eosinophils Absolute Auto 200 /uL (0-450); Eosinophils Percent Auto 2.6 % (2-4); Hematocrit 38.9 % (36-46); Hemoglobin 13.4 g/dL (12.0-16.0); Lymphocytes Absolute Auto 2300 /uL (1100-4500); Lymphocytes Percent Auto 39.5 % (25-40); Mean Corpuscular HGB Conc 34.4 % (30-36); Mean Corpuscular Hemoglobin 29.8 PG (26-34); Mean Corpuscular Volume 86.8 fL (80-100); Monocytes Absolute Auto 400 /uL (0-900); Monocytes Percent Auto 6.5 % (3-14); Neutrophils Absolute Auto 2900 /uL (1500-7000); Neutrophils Percent Auto 50.6 % (50-75); Platelet Count 324 X10^3/uL (150-400); Red Blood Cell Count 4.48 X10^6/uL (4.0-5.2); Red Cell Distribution Width 12.9 % (11.6-14.8); White Blood Cell Count 5.7 X10^3/uL (4.5-11.0)
[2019-12-31 08:45] LABS: Alanine Aminotransferase 18 IU/L (<35); Albumin 4.4 g/dL (3.5-5.0); Albumin Globulin Ratio 1.2 (1.0-2.8); Alkaline Phosphatase 53 U/L (38-126); Aspartate Aminotransferase 25 IU/L (14-36); BUN Creatinine Ratio 9.3 (6-22); Bilirubin Total 0.4 mg/dL (0.2-1.3); Blood Urea Nitrogen 7 mg/dL (7-17); Calcium 9.1 mg/dL (8.4-10.2); Carbon Dioxide 28 mmol/L (22-32); Chloride 104 mmol/L (98-107); Estimated Glomerular Filt Rate > 60.0 mL/min (>60); Globulin 3.7 g/dL (1.7-4.1); Glucose 87 mg/dL (70-100); HEMOLYSIS < 15 (0-50); Lipase 22 U/L (23-300); Magnesium 2.1 mg/dL (1.6-2.3); Potassium 3.9 mmol/L (3.4-5.1); Sodium 139 mmol/L (137-145); Total Protein 8.1 g/dL (6.3-8.2)
[2019-12-31 09:30] VITALS: BP 153/89; PULSE 56; RESP 18; O2SAT 99
== END 2019-12-31 10:31 | disposition home or self-care (01) ==
PROVIDERS: Emergency Provider Emergency Medicine; PCP Nurse Practitioner
DX: R10.12 Left upper quadrant pain (principal); K59.00 Constipation, unspecified; B02.9 Zoster without complications
CPT/HCPCS: 36415; 80053; 81003; 83690; 83735; 85025; 96374; 96375; 99284; J1885; J2405

== ENCOUNTER → 2020-04-30 13:19 | Outpatient (CLI) | payer OTHER, MEDICAID, SELFPAY ==
--- NOTE | 2020-04-30 13:21 | DI.CT.S_ITS ---
PROCEDURE: CT CHEST WO CON INDICATIONS: evaluate known pulmonary nodule TECHNIQUE: Noncontrast 5 mm thick sections acquired from the pulmonary apices to the posterior costophrenic angles. 1 mm lung window, 5 mm thick coronal and sagittal and 7 mm axial MIP reformats were then acquired. For radiation dose reduction, the following was used: automated exposure control, adjustment of mA and/or kV according to patient size. COMPARISON: [facility], CT, KIDNEY/ URETER/BLADDER, 05/26/2009, 13:09. [facility], CT, PE STUDY (CTA CHEST), 10/01/2016, 12:57[facility], CT, THORAX WITHOUT CONTRAST, 08/04/2017, 13:45. FINDINGS: Image quality: Excellent. Scattered subsegmental atelectasis and/or scarring. No focal consolidation. Unchanged appearance of 5 mm ground-glass nodule in the right lower lobe dating back to 05/26/09 Scattered calcified granulomas. 2 mm nodule in the left apex is unchanged since 08/04/17, no further follow-up necessary. No pleural effusions or pneumothorax. Central and peripheral airways are patent and normal in caliber. Mediastinum: Heart size is normal. No pericardial effusion. No mediastinal adenopathy by size criteria. Thoracic aorta and central pulmonary arteries are normal in size. Esophagus is normal in caliber. No hiatal hernia. Bones and chest wall: No suspicious bony lesions. No vertebral body compression fractures. No axillary or supraclavicular adenopathy by size criteria. Thyroid is grossly unremarkable Abdomen: Visualized upper abdominal solid organs and bowel loops appear normal in the absence of contrast. IMPRESSION: Stable appearance of pulmonary nodules as above. No further follow-up needed for these findings although if patient meets threshold criteria, annual lung screening CT could be performed. Dictated by: César Hendrix M.D. on 04/30/2020 at 13:51 Approved by: César Hendrix M.D. on 04/30/2020 at 14:01
== END ==
PROVIDERS: PCP Nurse Practitioner; Referring Provider Nurse Practitioner; Visit Provider Nurse Practitioner
DX: R91.8 Other nonspecific abnormal finding of lung field (principal)
CPT/HCPCS: 71250

== ENCOUNTER → 2022-01-21 11:52 | Outpatient (CLI) | payer OTHER, MEDICAID, SELFPAY ==
[2022-01-21 13:04] LABS: Appearance Urine UA SL CLOUDY; Bilirubin Urine UA NEGATIVE (NEGATIVE); Color Urine UA YELLOW; Glucose Urine UA NEGATIVE (Negative); Ketones Urine UA NEGATIVE (NEGATIVE); Leukocyte Esterase Urine UA 2+ (NEGATIVE); Nitrite Urine UA NEGATIVE (Negative); Occult Blood Urine UA TRACE-INTACT (Negative); Protein Urine UA NEGATIVE (Negative); Specific Gravity Urine UA 1.025 (1.000-1.035); Urobilinogen Urine UA 0.2 E.U./dL (0.2)
[2022-01-21 13:14] LABS: pH Urine UA 5.5 (4.5-8.0)
[2022-01-21 13:43] LABS: RBC Urine 1-5/HPF (0-5/HPF); Squamous Epithelial Cell Urine 0-1 /HPF (0-5/HPF); WBC Urine 1-5/HPF (0-5/HPF)
[2022-01-21 13:44] LABS: Bacteria Urine Few (2-10)
[2022-01-21 13:45] LABS: Amorphous Sediment Urine 1+; Culture Indicated Urine Specimen Cultured
== END ==
PROVIDERS: PCP Nurse Practitioner; Referring Provider Nurse Practitioner; Visit Provider Nurse Practitioner
DX: R30.0 Dysuria (principal)
CPT/HCPCS: 81001; 87077; 87086; 87186

== ENCOUNTER → 2022-01-25 09:43 | Outpatient (CLI) | payer OTHER, MEDICAID, SELFPAY ==
[2022-01-25 11:51] LABS: Add Manual Diff / Slide Review NO; Basophils Absolute Auto 0 /uL (0-100); Basophils Percent Auto 0.8 % (0-2); Eosinophils Absolute Auto 100 /uL (0-450); Eosinophils Percent Auto 2.9 % (2-4); Hematocrit 39.6 % (36-46); Hemoglobin 13.6 g/dL (12.0-16.0); Lymphocytes Absolute Auto 1700 /uL (1100-4500); Lymphocytes Percent Auto 36.7 % (25-40); Mean Corpuscular HGB Conc 34.3 % (30-36); Mean Corpuscular Hemoglobin 30.1 PG (26-34); Mean Corpuscular Volume 87.5 fL (80-100); Monocytes Absolute Auto 300 /uL (0-900); Monocytes Percent Auto 7.5 % (3-14); Neutrophils Absolute Auto 2400 /uL (1500-7000); Neutrophils Percent Auto 52.1 % (50-75); Platelet Count 299 X10^3/uL (150-400); Red Blood Cell Count 4.52 X10^6/uL (4.0-5.2); Red Cell Distribution Width 13.1 % (11.6-14.8); White Blood Cell Count 4.7 X10^3/uL (4.5-11.0)
[2022-01-25 12:00] LABS: Alanine Aminotransferase 19 IU/L (<35); Albumin 4.4 g/dL (3.5-5.0); Albumin Globulin Ratio 1.2 (1.0-2.8); Alkaline Phosphatase 52 U/L (38-126); Aspartate Aminotransferase 28 IU/L (14-36); BUN Creatinine Ratio 20.8 (6-22); Bilirubin Total 0.6 mg/dL (0.2-1.3); Blood Urea Nitrogen 15 mg/dL (7-17); Calcium 8.8 mg/dL (8.4-10.2); Carbon Dioxide 27 mmol/L (22-32); Chloride 105 mmol/L (98-107); Cholesterol 321 mg/dL (140-199); Estimated Glomerular Filt Rate > 60 mL/min (>60); Globulin 3.7 g/dL (1.7-4.1); Glucose 80 mg/dL (70-100); HDL Cholesterol 69 mg/dL (40-60); HEMOLYSIS < 15 (0-50); LDL Cholesterol Calculated 236 mg/dL (<100); Sodium 139 mmol/L (137-145); Total Protein 8.1 g/dL (6.3-8.2); Triglycerides 82 mg/dL (35-150)
[2022-01-25 12:16] LABS: Free T4, Direct Thyroxine 0.96 ng/dL (0.78-2.19)
[2022-01-25 12:30] LABS: Thyroid Stimulating Hormone 3.68 uIU/mL (0.47-4.68)
[2022-01-25 15:47] LABS: Hep C Virus Ab w/Reflex Quant NEGATIVE s/c (NEGATIVE)
[2022-01-26 14:50] LABS: Fecal Immunochemical Test Negative (Negative)
== END ==
PROVIDERS: PCP Nurse Practitioner; Referring Provider Nurse Practitioner; Visit Provider Nurse Practitioner
DX: R30.0 Dysuria (principal); Z00.00 Encounter for general adult medical examination without abnormal findings; Z11.59 Encounter for screening for other viral diseases; Z12.11 Encounter for screening for malignant neoplasm of colon
CPT/HCPCS: 36415; 80053; 80061; 82274; 84439; 84443; 84481; 85025; 86803

== ENCOUNTER → 2022-02-11 15:38 | Outpatient (CLI) | payer OTHER, MEDICAID, SELFPAY ==
--- NOTE | 2022-02-11 15:39 | DI.CT.S_ITS ---
PROCEDURE: CT CHEST WO CON INDICATIONS: f/up nodules and ground glass opacities TECHNIQUE: Noncontrast 5 mm thick sections acquired from the pulmonary apices to the posterior costophrenic angles. 1 mm lung window, 5 mm thick coronal and sagittal and 7 mm axial MIP reformats were then acquired. For radiation dose reduction, the following was used: automated exposure control, adjustment of mA and/or kV according to patient size. COMPARISON: [facility], CT, THORAX WITHOUT CONTRAST, 08/04/2017, 13:45. [facility], CT, CT CHEST WO CON, 04/30/2020, 13:21. FINDINGS: Image quality: Excellent. Lungs and pleura: 4 mm pulmonary nodule at the left apex is unchanged from the study dated August 04, 2017 (series 3/image 35). 7 mm ground-glass nodule within the right lower lobe is unchanged as well (series 3/image 171). Atelectasis or scar is redemonstrated at the inferior medial right lower lobe and is unchanged from the 2018 study. No new pulmonary nodules. No acute airspace opacities. No pleural effusion or pneumothorax. Mediastinum: Heart size is normal. No pericardial effusion. No mediastinal adenopathy by size criteria. Thoracic aorta and central pulmonary arteries are normal in size. Esophagus is normal in caliber. No hiatal hernia. Bones and chest wall: No suspicious bony lesions. No vertebral body compression fractures. No axillary or supraclavicular adenopathy by size criteria. Thyroid gland is unremarkable . Abdomen: Visualized upper abdominal solid organs and bowel loops appear normal in the absence of contrast. IMPRESSION: Stable pulmonary nodules when compared with the CT dated August 04, 2017. No further follow-up recommended. Dictated by: Stefany Love M.D. on 02/11/2022 at 17:00 Approved by: Stefany Love M.D. on 02/11/2022 at 17:03
== END ==
PROVIDERS: PCP Nurse Practitioner; Referring Provider Nurse Practitioner; Visit Provider Nurse Practitioner
DX: R91.8 Other nonspecific abnormal finding of lung field (principal)
CPT/HCPCS: 71250